=== PATIENT | male | born 1995 | race Caucasian/White ===

== ENCOUNTER 2019-10-29 10:12 | Emergency (ER) | payer MEDICAID ==
[~2019-10-29] VITALS: Ht 172.7 cm; Wt 83.5 kg
[2019-10-29 10:19] VITALS: Ht 172.7 cm; Wt 83.5 kg
[2019-10-29 11:23] VITALS: BP 131/79
== END 2019-10-29 11:23 | disposition home or self-care (01) ==
LOC: ED 10:12
DX: J02.9 Acute pharyngitis, unspecified (principal)
CPT/HCPCS: J1100

== ENCOUNTER 2019-10-30 20:05 | Emergency (ER) | payer MEDICAID ==
[~2019-10-30] VITALS: Ht 172.7 cm; Wt 83.0 kg
[2019-10-30 20:29] VITALS: Ht 172.7 cm; Wt 83.0 kg
[2019-10-30 21:56] LABS: BASOPHIL % 0 % (0-2); PLATELET COUNT 187 x10^3mcL (130-400); RED CELL DISTRIBUTION WIDTH 12.6 % (11.5-14.5)
[2019-10-30 22:35] LABS: CARBON DIOXIDE 29.9 mmol/L (21-32); CHLORIDE SERUM 101 mmol/L (98-107); GFR1 > 60 mL/min; GLUCOSE SERUM 97 mg/dL (74-106); POTASSIUM SERUM 3.6 mmol/L (3.5-5.1); SODIUM SERUM 140 mmol/L (136-145)
[2019-10-30 22:40] LABS: ALBUMIN 4.2 g/dL (3.4-5.0); ALKALINE PHOSPHATASE 95 U/L (46-116); ALT/SGPT 34 U/L (16-63); AST/SGOT 20 U/L (15-37); BILIRUBIN TOTAL 0.8 mg/dL (0.20-1.00); LIPASE 73 IU/L (73-393)
[2019-10-30 22:42] LABS: TOTAL PROTEIN, SERUM 8.4 g/dL (6.4-8.2)
[2019-10-30 23:37] LABS: microscopic required? NO
[2019-10-30 23:52] LABS: urine erythrocyte NEGATIVE (NEGATIVE)
[2019-10-31 01:26] VITALS: BP 104/64
== END 2019-10-31 01:26 | disposition home or self-care (01) ==
LOC: ED 20:05
PROVIDERS: Specialist
DX: J04.0 Acute laryngitis (principal); K29.70 Gastritis, unspecified, without bleeding
CPT/HCPCS: J0696; J1100; J7030; J7060; Q0092